=== PATIENT | female | born 1970 | race Caucasian/White ===

== ENCOUNTER → 2021-12-22 | Outpatient (CLI) | payer OTHER ==
--- NOTE | 2021-12-22 15:44 | CONS ---
CONSULTATION DATE OF SERVICE: 12/22/2021 This 51-year-old lady has been re-evaluated in [facility] for obstructive sleep apnea- hypopnea syndrome. HISTORY OF PRESENT ILLNESS/SLEEP-WAKE EVALUATION: Patient's usual sleep schedule is from 2 a.m. until between 7 and 10 a.m. Sometimes she has problems with falling asleep. She has a history of obstructive sleep apnea diagnosed about 15 years ago. She was on treatment with CPAP, but for some period of time she did not use CPAP. She snores, has stopped breathing during sleep, multiple awakenings from sleep 3 times with 2 episodes of nocturia. In the morning she wakes up tired, has difficulties paying attention, falling asleep during the day, has problems with memory, concentration, depression, anxiety, claustrophobia. [place] Sleepiness Scale is significantly increased at 16. She may take 1 or 2 naps a day around 2 p.m. No history of hypnagogic hallucinations, sleep paralysis or cataplexy. PAST MEDICAL HISTORY: Positive for asthma, headaches, restless leg symptoms. SOCIAL HISTORY: Positive for smoking for many years (27 years, one pack per day); trying to quit. Alcohol consumption occasional. MEDICATIONS: 1. Bupropion 100 mg twice a day. 2. Naproxen 375 mg twice a day. FAMILY HISTORY: Positive for sleep apnea, hypertension, heart problems, diabetes, anemia. REVIEW OF SYSTEMS: Multiple awakenings from sleep, snoring, sleepiness during the day. No fevers. No double vision. No recent chest pain. No shortness of breath. No abdominal pain. No bleeding episodes. No blood in the urine. No seizure episodes. PHYSICAL EXAMINATION: GENERAL: Pleasant lady without distress. VITAL SIGNS: BP 142/80, HR 91, RR 16, height 5 feet 2-2/3 inches, weight 301.8 pounds, body mass index 54.1, temperature 97.4, oxygen saturation at room air 97%. HEENT: PERRLA, EOMI, evaluation of oropharynx showed tongue protrudes midline. Low position of soft palate; Mallampati III. NECK: Supple, no JVD. Thyroid is not palpable. Neck is wide; 19 inches in circumference. LUNGS: Clear to percussion and to auscultation. Good air exchange. No wheezing or rhonchi. HEART: S1, S2 regular. No murmurs, gallops, or rubs. ABDOMEN: Obese. EXTREMITIES: No clubbing or cyanosis. GEEK SQUAD MANAGER: Awake, alert, and oriented X3. Cranial nerves 2 to 7 intact. There is no fasciculation or atrophy. noted. No focal deficits observed. IMPRESSION: 1. Snoring, multiple awakenings from sleep, low position of soft palate, Mallampati III, wide neck, 19 inches in circumference, history of obstructive sleep apnea- hypopnea syndrome diagnosed about 15 years ago; obstructive sleep apnea-hypopnea syndrome. 2. Obesity. 3. Asthma. 4. Migraine headaches. 5. Restless leg symptoms. 6. Smoker for 27 pack/years; trying to quit. PLAN: 1. Polysomnography for evaluation of patient's breathing during sleep. 2. CPAP/BiPAP titration if sleep study confirms obstructive sleep apnea-hypopnea syndrome. 3. Preferable position during sleep on the side. 4. No driving if patient feels any sleepiness. 5. I will see patient for follow up visit to explain results of testing and following plan. 6. We will obtain results of previous sleep studies. Thank you very much for referring this patient for reevaluation. Sincerely, Alessio Rocha MD, PhD, FAASM Diplomat of [employer] [employer] Sleep Medicine Board of [place] [employer] Adjustment Clerk of [facility] [place] MMODL / LIZET: [phone] /
== END ==
LOC: SLEEP 14:01
PROVIDERS: ATTEND Internal Medicine
DX: G47.33 Obstructive sleep apnea (adult) (pediatric) (principal); E66.9 Obesity, unspecified; J45.909 Unspecified asthma, uncomplicated; G43.909 Migraine, unspecified, not intractable, without status migrainosus; G25.81 Restless legs syndrome; F17.210 Nicotine dependence, cigarettes, uncomplicated; Z68.43 Body mass index [BMI] 50.0-59.9, adult
CPT/HCPCS: 99202

== ENCOUNTER → 2022-05-24 | Outpatient (CLI) | payer OTHER ==
--- NOTE | 2022-05-24 17:26 | P.PN ---
Subjective DATE: 05/24/2022 FOLLOW UP VISIT. Patient with obstructive sleep apnea hypopnea syndrome return to sleep center for follow-up visit. Recently patient had sleep study which documented obstructive sleep apnea hypopnea syndrome. Patient was initiated on PAP therapy and today is first visit after treatment was started. I explained results of sleep studies to patient in details. Patient was able to use PAP equipment every night for the whole night. The patient does not have significant problems with the mask, PAP pressure and humidification. [place] sleepiness scale is 14. I checked information from PAP unit. PAP unit pressure 5-12, average 11.8 cm H2O. Usage is 37% and only 27% % for more then 4 hours, average 4.8 hours per night. Leak is 36.9 l/m, which is increased. Apnea Hypopnea Index is 4.4, which is normal. MEDICATIONS:1. Bupropion 100 mg twice a day 2. Naproxen as needed During physical exam: GENERAL: A pleasant patient without any distress. VITAL SIGNS: BP 153/85, HR 100, RR 20 , weight 293.4, temperature 97.2, oxygen saturation at room air 95 . HEENT: PERRLA, EOMI.low position of soft palate, Mallapati 3 . NECK: Supple. No JVD. LUNGS: Clear to percussion and to auscultation. Good air exchange. No wheezing or rhonchi. HEART: S1, S2 regular. ABDOMEN: Soft and nontender. Obese EXTREMITIES: No clubbing or cyanosis. ASSOCIATE PROFESSOR OF MUSICOLOGY: Awake, alert, and oriented x3. No focal deficit. Impressions: 1. Obstructive sleep apnea-hypopnea syndrome. Patient started to use CPAP equipment but presently does not use it every night. Normal respiration on CPAP. 2. Obesity. 3. Asthma. 4. History of migraines. 5. Smoking for 27 pack years continue to smoke. Plan: 1. Continue using PAP equipment every night for the whole night. Patient promised to follow recommendations. 2. To change air filter at least 1-2 times per month. 3. PAP unit should stay lower then position of the head. 4. Advised patient to remove all remaining water from humidifier canister daily and make it dry after each usage. Refill canister with fresh distilled water before each usage. 5. Sleep hygiene with regular time in bed for at least 8 hours. 6. Precautions related to driving. No driving if feel any sleepiness. 7. Follow up visit in one month. 8. Losing weight. Thank you very much for allowing me to participate in the management of your patient. Alessio Rocha MD, PhD, FAASM. Diplomat of [place] [employer], Sleep Medicine Board by [place] [employer] Case Packer And Sealer of [facility] [place]
== END ==
LOC: SLEEP 15:15
PROVIDERS: ATTEND Internal Medicine
DX: G47.33 Obstructive sleep apnea (adult) (pediatric) (principal); Z99.89 Dependence on other enabling machines and devices; E66.9 Obesity, unspecified; J45.909 Unspecified asthma, uncomplicated; G43.909 Migraine, unspecified, not intractable, without status migrainosus; F17.210 Nicotine dependence, cigarettes, uncomplicated; Z79.899 Other long term (current) drug therapy